=== PATIENT | male | born 1955 | race Caucasian/White ===

== ENCOUNTER 2023-01-03 09:00 | Inpatient (IN) | payer MEDICARE, MEDICAID ==
[~2023-01-03] VITALS: Ht 162.6 cm; Wt 87.1 kg
[2023-01-03 09:35] VITALS: BP_SYST 141; PULSE 72; RESP 19; TEMP 97.7; O2SAT 98
[2023-01-03] MEDS ORDERED: NACL 0.9% 1,000 ML IV ONE (10:00)
[2023-01-03] MEDS ORDERED: ONDANSETRON HCL 4 MG/2 ML VIAL IVP ONE (10:00)
[2023-01-03] MEDS ORDERED: MORPHINE 4 MG INJ. 4 MG/ML VIAL IVP ONE (10:00)
[2023-01-03] MEDS ORDERED: KETOROLAC TROMETHAMINE 30 MG VIAL ONE (10:29)
[2023-01-03] MEDS ORDERED: KETOROLAC TROMETHAMINE 15 MG VIAL IVP ONE (10:30)
[2023-01-03] MEDS ORDERED: FAMOTIDINE PF 20 MG/2 ML VIAL IVP ONE (10:30)
[2023-01-03 10:32] LABS: BILIRUBIN,URINE NEGATIVE (NEGATIVE); BLOOD, URINE NEGATIVE (NEGATIVE); CLARITY/URINE Clear (CLEAR); COLOR,URINE YELLOW (YELLOW); GLUCOSE,URINE NEGATIVE (NEGATIVE); KETONES,URINE 1+ (NEGATIVE); NITRITE, URINE NEGATIVE (NEGATIVE); PH,URINE 5.5 (5.0-8.0); PROTEIN URINE NEGATIVE (NEGATIVE); UROBILINOGEN,URINE 0.2 (0.2-1.0)
[2023-01-03 10:37] LABS: BASOPHILS # (AUTO) 0.1 K/uL (0.0-0.2); BASOPHILS % (AUTO) 0.4 % (0.0-2.0); EOSINOPHILS % (AUTO) 0.1 % (0.0-4.0); HEMATOCRIT 45.9 % (36-54); HEMOGLOBIN 15.1 g/dL (14.0-18.0); LYMPHOCYTES # (AUTO) 0.5 K/uL (1.0-5.5); LYMPHOCYTES % (AUTO) 4.1 % (20.5-51.5); MEAN CORPUSCULAR HEMOGLOBIN 31 pg (27-31); MEAN CORPUSCULAR HGB CONC 33 % (32-36); MEAN CORPUSCULAR VOLUME 92 fL (79.0-98.0); MONOCYTES # (AUTO) 0.4 K/uL (0.0-1.0); MONOCYTES % (AUTO) 3.5 % (1.7-9.3); NEUTROPHILS # (AUTO) 11.4 K/uL (1.8-7.7); NEUTROPHILS % (AUTO) 91.9 % (40.0-70.0); PLATELET COUNT (AUTO) 219 K/uL (130-430); RED BLOOD CELL COUNT(AUTO) 4.96 MIL/uL (4.2-6.2); RED CELL DISTRIBUTION WIDTH 13.2 % (9.0-15.0); WHITE BLOOD COUNT (AUTO) 12.5 K/uL (4.8-10.8)
[2023-01-03 10:37] LABS: LEUKOCYTE ESTERASE ,URINE NEGATIVE (NEGATIVE)
[2023-01-03 10:50] LABS: CALCIUM 8.5 mg/dL (8.4-11.0); CREATININE 1.06 mg/dL (0.55-1.30); POTASSIUM 4.3 mmol/L (3.5-5.1)
[2023-01-03 10:52] LABS: INR 0.9 (0.80-1.20); PROTHROMBIN TIME 9.8 SECS (9.5-12.5)
[2023-01-03 10:54] LABS: ALBUMIN 3.9 g/dL (3.4-4.8); TOTAL BILIRUBIN 0.7 mg/dL (0.0-1.0); TOTAL PROTEIN, SERUM 7.3 g/dL (6.4-8.3)
[2023-01-03] MEDS ORDERED: iohexoL 350 mgI/mL, 100 ML INFUS..BTL IV ONE (11:20)
[2023-01-03] MEDS ORDERED: PIPERACILLIN/TAZO 3.375 GM in NS 50 ML IV ONE (12:45)
[2023-01-03] MEDS ORDERED: PIPERACILLIN/TAZOBACTAM 3.375 GM/VIAL (ZOSYN) IV ONE (13:00)
[2023-01-03] MEDS ORDERED: LR 1,000 ML IV ONE (13:15)
[2023-01-03] MEDS ORDERED: ONDANSETRON HCL 4 MG/2 ML VIAL IVP PRN (13:15)
[2023-01-03] MEDS ORDERED: MORPHINE 2 MG/ML INJ. SYRINGE IVP PRN (13:15)
[2023-01-03 15:09] VITALS: BP_SYST 139; PULSE 93; RESP 18; TEMP 97.4
[2023-01-03 15:36] VITALS: O2SAT 97
[2023-01-03] MEDS ORDERED: KETOROLAC TROMETHAMINE 30 MG VIAL IVP PRN (16:30)
[2023-01-03 18:13] VITALS: BP_SYST 139; PULSE 93; RESP 16; TEMP 97.5; O2SAT 97
[2023-01-03] MEDS: PIPERACILLIN/TAZO 3.375/DEX-IS 50 ML IV SCH (18:18)
[2023-01-03] MEDS ORDERED: BUPIVACAINE /PF 0.5% 30 ML VIAL ONE (19:51)
[2023-01-03] MEDS ORDERED: SEVOFLURANE 15 MIN GAS INH ONE (19:51)
[2023-01-03] MEDS ORDERED: ROCURONIUM BROMIDE 10 MG/ML (ZEMURON) ONE (19:51)
[2023-01-03] MEDS ORDERED: LR 1,000 ML IV.SOLN IV ONE (19:51)
[2023-01-03] MEDS ORDERED: METOCLOPRAMIDE HCL 10 MG/2 ML VIAL ONE (19:51)
[2023-01-03] MEDS ORDERED: ETOMIDATE 20 MG/ 10 ML VIAL (AMIDATE) ONE (19:51)
[2023-01-03] MEDS ORDERED: NS 1000 ML IV.SOLN IV ONE (19:51)
[2023-01-03] MEDS ORDERED: MIDAZOLAM HCL/PF 2 MG/2 ML SYRINGE ONE (19:51)
[2023-01-03] MEDS ORDERED: SUCCINYLCHOLINE CHLORIDE 20 MG/ML(QUELICIN) ONE (19:51)
[2023-01-03] MEDS ORDERED: NS IRRIG SOLN 1000 ML IR ONE (19:51)
[2023-01-03] MEDS ORDERED: LIDOCAINE 2%, 20 ML MDV ONE (19:51)
[2023-01-03] MEDS ORDERED: DEXAMETHASONE SOD PHOSPHATE 4 MG/ML VIAL ONE (19:51)
[2023-01-03] MEDS ORDERED: fentaNYL CITRATE/PF 100 MCG/2 ML AMP ONE (19:51)
[2023-01-03] MEDS ORDERED: ONDANSETRON HCL 4 MG/2 ML VIAL ONE (19:51)
[2023-01-03] MEDS ORDERED: ACETAMINOPHEN I.V. 1000 MG 100 ML IV ONE (19:55)
[2023-01-03 22:20] VITALS: BP_SYST 120; PULSE 78; RESP 18; TEMP 97.9; O2SAT 94
[2023-01-04] MEDS ORDERED: PIPERACILLIN/TAZOBACTAM 3.375 GM/VIAL (ZOSYN) IV ONE (00:37)
[2023-01-04] MEDS: PIPERACILLIN/TAZO 3.375/DEX-IS 50 ML IV SCH ×4 (01:29→18:43)
[2023-01-04 03:00] VITALS: BP_SYST 112; PULSE 87; RESP 18; TEMP 97.7; O2SAT 96
[2023-01-04 07:50] VITALS: BP_SYST 118; PULSE 64; RESP 18; TEMP 98.2; O2SAT 95
[2023-01-04 11:38] VITALS: BP_SYST 115; PULSE 85; RESP 18; TEMP 97.3; O2SAT 98
[2023-01-04 16:00] VITALS: BP_SYST 113; PULSE 76; RESP 18; TEMP 97; O2SAT 99
[2023-01-04 20:19] VITALS: BP_SYST 147; PULSE 66; RESP 18; TEMP 97.9
[2023-01-04 20:29] VITALS: BP_SYST 147; PULSE 66; RESP 18; TEMP 97.9; O2SAT 99
== END 2023-01-04 21:10 | disposition home or self-care (01) | DRG 342 ==
LOC: SED 09:00 → SMU 13:08
PROVIDERS: ADMIT Surgery; ATTEND Surgery
PROC: 0DTJ4ZZ Resection of Appendix, Percutaneous Endoscopic Approach (ICD-10-PCS; principal; 2023-01-04)
PROC: 0WQF4ZZ Repair Abdominal Wall, Percutaneous Endoscopic Approach (ICD-10-PCS; 2023-01-04)
DX: K35.31 Acute appendicitis with localized peritonitis and gangrene, without perforation (principal); R65.10 Systemic inflammatory response syndrome (SIRS) of non-infectious origin without acute organ dysfunction; K42.9 Umbilical hernia without obstruction or gangrene; K66.0 Peritoneal adhesions (postprocedural) (postinfection)
CPT/HCPCS: 36415; 71045; 75635; 76376; 80053; 81003; 82962; 83690; 85025; 85610-TC; 85730-TC; 87081; 88302; 88304; 93005; 96361; 96365; 96375; 99285; C1727; J0131; J0330; J1100; J1885; J2001; J2270; J2405; J2543; J2765; J3010; J3465; J3490; J7030; J7120; Q9967